=== PATIENT | male | born 1990 | race Hispanic/Latino ===

== ENCOUNTER 2024-01-27 11:55 | Emergency (ER) | payer SELFPAY ==
[2024-01-27 11:57] VITALS: BP 124/83
[2024-01-27 15:35] LABS: Glucose - Point of Care 108 mg/dl (70-99)
[2024-01-27] MEDS: NSS 1000 IV (15:45)
[2024-01-27] MEDS: ANTIVERT 25 MG PO (15:45)
[2024-01-27 16:03] LABS: % Basophils 0.5 % (0-2); % Eosinophils 0.6 % (0-6); % Immature Granulocytes 0.4 % (0-0.5); % Lymphocytes 17.1 % (20.5-51.1); % Neutrophils 77.4 % (42.2-75.2); Absolute Eosinophils 0.1 10^3/uL (0-0.7); Absolute Lymphocytes 1.4 10^3/uL (1.2-3.4); Absolute Monocytes 0.3 10^3/uL (0.1-0.6); Absolute Neutrophils 6.4 10^3/uL (1.4-6.5); Hematocrit 40.8 % (39.0-52.0); Hemoglobin 14.1 g/dL (13.0-18.0); Mean Corp Hgb Conc. 34.6 g/dL (33.0-37.0); Mean Corpuscular Hgb 29.8 pg (27.0-31.0); Mean Corpuscular Volume 86.3 fL (80.0-94.0); Nucleated Red Blood Cells % 0 % (-); Platelet Count 370 10^3/uL (130-400); Red Blood Cell Count 4.73 10^6/uL (4.70-6.10); Red Cell Dist. Width 13.2 % (11.5-14.5); White Blood Cell Count 8.2 10^3/uL (4.8-10.8)
[2024-01-27 16:16] LABS: ALT (SGPT) 51 U/L (0-50); AST (SGOT) 36 U/L (17-59); Albumin 4.9 g/dl (3.5-5.0); Alkaline Phosphatase 114 U/L (38-126); Blood Urea Nitrogen 17 mg/dl (9-20); Calcium 10.3 mg/dl (8.4-10.2); Carbon Dioxide 20 mmol/L (22-30); Chloride 104 mmol/L (98-107); Glucose 108 mg/dl (70-99); Potassium 4.6 mmol/L (3.5-5.1); Sodium 135 mmol/L (135-145); Total Bilirubin 1.9 mg/dl (0.2-1.3); Total Protein 8.1 g/dl (6.3-8.2); eGFR > 60.00
--- NOTE | 2024-01-27 18:56 | ED.GENMED ---
History of Present Illness
General
Chief Complaint: Dizziness
Source: patient
Exam Limitations: none
Time Seen by Provider: 01/27/24 13:20
Nursing documentation reviewed up to this point in time: agreed with
Travel History
Have you had any contact with someone who has COVID-19?: No
Do you have any symptoms of coronavirus? Fever > 100 degrees, chills, cough, shortness of breath, sore throat, loss of taste or smell, muscle aches, or headache?: No
History of Present Illness
History of Present Illness:
33-year-old male presenting to the emergency department today with concerns of nasal congestion facial pressure over the past few days has felt shaky also has a history of anxiety as well. Denies any chest pain shortness of breath has been able to
ambulate denies specific numbness or weakness.
Review of Systems
Review of Systems
Allergies reviewed?: Yes
All Other Systems: ROS reviewed and negative except as documented in HPI and ROS
Phy Exam
Physical Exam
Physical Exam:
GENERAL: Alert , in no apparent distress
EYE: pupils equal and reactive
NECK: Supple, no significant adenopathy.
ENT: o/p clr, mmm.
CARDIAC: Regular rate and rhythm .
LUNGS: Clear breath sounds bilaterally, no acute respiratory distress, no wheezes/rales/rhonchi
ABDOMEN: Soft, without focal tenderness, no r/g, no cvat
NEUROLOGICAL: Alert and oriented, no focal neuro deficits 5-5 upper and lower extremity strength normal sensation with palpating bilaterally normal finger-nose and [id number] no pronator drift
SKIN: Warm and dry, skin intact.
MUSCULOSKELETAL: No edema, well perfused.
PSYCH: Normal and appropriate interaction.
Course
Orders/Labs/Results
Orders:
Orders
01/27/24 15:09
Bedside Glucose- Treatment ONCE
0.9% Sodium Chloride 1000 ml [Nss] 1,000 ml IV BOLUS
Meclizine [Antivert] 25 mg PO NOW STA
01/27/24 15:10
Electrocardiogram (*1) Stat
Reason for Study: Other
Other Reason for Exam: neuro symptoms
EKG- Treatment ONCE
01/27/24 15:42
Complete Blood Count/With Diff Urgent
Comprehensive Metabolic Panel Urgent
01/27/24 18:42
Ketorolac [Toradol] 30 mg IV NOW STA
Abnormal Lab Results
01/27/24 01/27/24
15:33 15:42
Neutrophils % 77.4 H %
(42.2-75.2)
Lymphocytes % 17.1 L %
(20.5-51.1)
Carbon Dioxide 20 L mmol/L
(22-30)
Glucose 108 H mg/dl
(70-99)
Calcium 10.3 H mg/dl
(8.4-10.2)
Total Bilirubin 1.9 H mg/dl
(0.2-1.3)
ALT 51 H U/L
(0-50)
POC Glucose 108 H mg/dl
(70-99)
01/27/24 15:42
01/27/24 15:42
Vital Signs
Initial and Last Documented VS:
Initial Vital Signs
Temp Pulse Resp BP Pulse Ox
98.7 F 68 18 124/83 99
01/27/24 11:57 01/27/24 11:57 01/27/24 11:57 01/27/24 11:57 01/27/24 11:57
Last Documented Vital Signs
Temp Pulse Resp BP Pulse Ox
98.7 F 68 18 124/83 99
01/27/24 11:57 01/27/24 11:57 01/27/24 11:57 01/27/24 11:57 01/27/24 11:57
MDM/Problems Addressed
MDM/Problems Addressed:
33-year-old male presenting to the emergency department today with concerns of facial pressure some shakiness and some dizziness. Vital signs normal here normal neurologic evaluation. Labs unremarkable. Patient was given Toradol and meclizine
here patient appeared well was able to ambulate stable for outpatient management return precautions given.
*Critical Care Note
Total Time (30-74mins, 75-104mins- exclusive of procedures): Not Applicable
ED Attending Note
-
Portions of this chart may have been created with voice recognition software.� Occasional wrong word or��sound alike� substitutions may have occurred due to the inherent limitations of voice recognition software.
Discharge Plan
Departure
Patient Disposition: Home (Routine Discharge)
Date of Disposition: 01/27/24
Time of Disposition: 18:56
Patient with high blood pressure during this ER visit?: No
Condition: Good
Covid-19: Not Applicable
Discharge Problem:
Sinus pressure
Instructions: Dizziness, Nonvertigo, (DC)
Prescriptions:
New
fluticasone propionate [Flonase Allergy Relief] 50 mcg/actuation spray,suspension
1 spray intranasal BID Qty: 16 0RF
Referrals:
NONE,* [Family Provider] -
Activity Restrictions/Additional Instructions:
You came to the emergency department today with concerns of congestion and facial pressure dizziness. You had a reassuring assessment. Please take Flonase to help with sinus pressure and follow close with the primary care doctor within 1 week.
Return to the emergency department for any worsening, new or concerning symptoms.
Interventions
Interventions:
*Risk Screen - Suicide Last Done: 01/27/24 11:59
*General Assessment Last Done: 01/27/24 11:59
*Neglect/Abuse Screening Last Done: 01/27/24 11:59
ED- Fall Risk Assessment Last Done: 01/27/24 15:27
ED- Neurological Assessment Last Done: 01/27/24 15:27
ED- Cardiac Assessment Last Done: 01/27/24 15:27
ED Swallowing Screen Last Done: 01/27/24 15:27
Discharge Date and Time
Print Language: [email or web address]
[2024-01-27] MEDS: TORADOL 30 MG IV (19:20)
[2024-01-27 19:27] VITALS: BP 114/76
== END 2024-01-27 19:31 | disposition home or self-care (01) ==
LOC: EMR 11:55
PROVIDERS: Physician Assistant; EMERGENCY PHYSICIAN Emergency Medicine
DX: J34.89 Other specified disorders of nose and nasal sinuses (principal)
CPT/HCPCS: 99284; 96374; 96361; 80053; 82962; 85025; 93005